=== PATIENT | male | born 1935 | race Caucasian/White ===

== ENCOUNTER 2020-06-27 22:39 | Observation (INO) | payer MEDICARE, OTHER ==
[~2020-06-27] VITALS: Ht 170.2 cm; Wt 77.2 kg
[2020-06-27 23:09] LABS: BASOPHILS % (AUTO) 1 % (0-1); EOSINOPHILS % (AUTO) 1 % (1-7); LYMPHOCYTES % (AUTO) 15 % (22-44); MEAN CORPUSCULAR HEMOGLOBIN 42.1 pg (27.5-34.5); MEAN CORPUSCULAR HGB CONC 35.5 g/dL (33.2-36.2); MEAN PLATELET VOLUME 6.4 fL (7.4-10.4); MONOCYTES % (AUTO) 8 % (2-9); NEUTROPHILS % (AUTO) 76 % (42-75); PLATELET COUNT 452 x10^3/uL (130-400); RED BLOOD COUNT 3.68 x10^6/uL (4.38-5.82)
[2020-06-27 23:20] LABS: ALBUMIN 3.7 g/dL (3.4-5.0); ANION GAP 6 mmol/L (5-15); CALCIUM 8.5 mg/dL (8.5-10.1); CHLORIDE 106 mmol/L (98-107); CREATININE 1.45 mg/dL (0.7-1.3)
[2020-06-27 23:24] LABS: TROPONIN I 0.028 ng/mL (0.000-0.045)
[2020-06-27] MEDS ORDERED: [UNRECOGNIZED DRUG - OTHER] (23:29)
[2020-06-27] MEDS ORDERED: ASPI-963 PO (23:29)
[2020-06-27] MEDS ORDERED: PRAS25CA6 PO (23:29)
[2020-06-27] MEDS ORDERED: RED600CA2 PO (23:29)
[2020-06-27] MEDS ORDERED: THYR120T PO (23:29)
[2020-06-27] MEDS ORDERED: FOLIC (23:29)
[2020-06-27] MEDS ORDERED: HYDR500C3 PO (23:29)
[2020-06-27] MEDS ORDERED: SODIUM CHLORIDE FLUSH 10ML SYR IVF ONE (23:30)
[2020-06-27 23:50] LABS: MD MORPH REVIEW ONLY
[2020-06-27 23:51] LABS: <PLATELET ESTIMATE> INCREASED; <PLT MORPHOLOGY> NORMAL PLT MORPH; POLYCHROMASIA 1+
[2020-06-28] MEDS ORDERED: SODIUM CHLORIDE FLUSH 10ML SYR IVF PRN (01:00)
[2020-06-28] MEDS ORDERED: DIPHENHYDRAMINE 25 MG CAPSULE PO PRN (02:30)
[2020-06-28] MEDS ORDERED: DIAZEPAM 5 MG TABLET PO PRN (02:30)
[2020-06-28] MEDS ORDERED: ENALAPRILAT 1.25 MG/ML, 2ML IVPush PRN (02:30)
[2020-06-28] MEDS ORDERED: ONDANSETRON 2MG/ML, 2ML IVPush PRN (02:30)
[2020-06-28] MEDS ORDERED: ACETAMINOPHEN 325 MG TABLET PO PRN (02:30)
[2020-06-28 03:13] VITALS: BP 167/77
[2020-06-28 03:39] LABS: BILIRUBIN, DIRECT 0.2 mg/dL (0.1-0.2)
[2020-06-28 04:05] LABS: BILIRUBIN,INDIRECT 0.5 mg/dL (0.0-2.0); BILIRUBIN,TOTAL 0.7 mg/dL (0.2-1.0); TOTAL PROTEIN 6.9 g/dL (6.4-8.2)
[2020-06-28 05:17] LABS: CHOLESTEROL, TOTAL 126 mg/dL (140-239); TRIGLYCERIDES 69 mg/dL (50-200); VLDL CHOLESTEROL 14 mg/dL (0-25)
[2020-06-28 05:20] LABS: CHOL/HDL RATIO 2.8; HDL CHOL % 36 % (26-37); HDL CHOLESTEROL (DIRECT) 45 mg/dL (40-60); LDL CHOLESTEROL,CALCULATED 67 mg/dL (54-169); LDL/HDL RATIO 1.5 (0.5-3.0); TROPONIN I 0.031 ng/mL (0.000-0.045)
[2020-06-28 07:17] VITALS: BP 157/81
[2020-06-28] MEDS ORDERED: HYDROXYUREA 500 MG CAPSULE PO SCH ×3 (09:00→21:00)
[2020-06-28] MEDS ORDERED: DHEA 25 MG PO SCH (09:00)
[2020-06-28] MEDS ORDERED: TEMPLATE NON-FORMULARY MED. (Red Yeast Rice** 600 MG) PO SCH (09:00)
[2020-06-28] MEDS ORDERED: CHOLEAST PO SCH (09:00)
[2020-06-28] MEDS ORDERED: [UNRECOGNIZED DRUG - OTHER] PO SCH (09:00)
[2020-06-28] MEDS ORDERED: ASPIRIN 81 MG TABLET EC PO SCH (09:00)
[2020-06-28] MEDS ORDERED: THYROID 30 MG TABLET PO SCH (09:00)
[2020-06-28] MEDS: THYROID 30 MG TABLET PO SCH (09:00)
[2020-06-28] MEDS: ASPIRIN 81 MG TABLET EC PO SCH (09:00)
[2020-06-28] MEDS: HYDROXYUREA 500 MG CAPSULE PO SCH (09:09)
[2020-06-28 09:24] LABS: MICROSCOPIC NOT IND
[2020-06-28 13:14] VITALS: BP 151/78
[2020-06-28 21:50] VITALS: BP 164/89
[2020-06-29 01:45] VITALS: BP 148/66
[2020-06-29 07:20] VITALS: BP 121/76
[2020-06-29 07:43] LABS: BASOPHILS % (AUTO) 1 % (0-1); EOSINOPHILS % (AUTO) 1 % (1-7); LYMPHOCYTES % (AUTO) 17 % (22-44); MEAN CORPUSCULAR HEMOGLOBIN 42.2 pg (27.5-34.5); MEAN CORPUSCULAR HGB CONC 34.9 g/dL (33.2-36.2); MEAN PLATELET VOLUME 6.5 fL (7.4-10.4); MONOCYTES % (AUTO) 10 % (2-9); NEUTROPHILS % (AUTO) 72 % (42-75); PLATELET COUNT 532 x10^3/uL (130-400); RED BLOOD COUNT 4.08 x10^6/uL (4.38-5.82); RED CELL DISTRIBUTION WIDTH 13.2 % (9.4-14.8)
[2020-06-29 07:50] LABS: MD NO
[2020-06-29 07:56] LABS: ANION GAP 5 mmol/L (5-15); CALCIUM 8.8 mg/dL (8.5-10.1); CHLORIDE 105 mmol/L (98-107); CREATININE 1.26 mg/dL (0.7-1.3)
[2020-06-29] MEDS: THYROID 30 MG TABLET PO SCH (08:03)
[2020-06-29] MEDS: ASPIRIN 81 MG TABLET EC PO SCH (08:03)
[2020-06-29] MEDS: HYDROXYUREA 500 MG CAPSULE PO SCH (08:13)
[2020-06-29] MEDS ORDERED: OMNIPAQUE 350 MG/ML, 100ML BOTTLE ONE (10:51)
[2020-06-29] MEDS ORDERED: DIAZEPAM 5 MG/ML, 10ML VIAL IV ONE (13:00)
[2020-06-29] MEDS ORDERED: DIAZEPAM 5 MG/ML, 2ML IV ONE ×2 (13:00→14:30)
[2020-06-29 13:42] VITALS: BP 130/83
== END 2020-06-29 17:53 | disposition home or self-care (01) ==
LOC: ED 06-28 01:27 → EDIP 06-28 01:45 → INTOOBSV 06-28 01:45 → 5SO 06-28 02:19
PROVIDERS: ADMIT Family Medicine; ATTEND Hospitalist
DX: R55 Syncope and collapse (principal); N17.0 Acute kidney failure with tubular necrosis; I65.23 Occlusion and stenosis of bilateral carotid arteries; I49.1 Atrial premature depolarization; I34.0 Nonrheumatic mitral (valve) insufficiency; D75.89 Other specified diseases of blood and blood-forming organs; J44.9 Chronic obstructive pulmonary disease, unspecified; E78.5 Hyperlipidemia, unspecified; E03.9 Hypothyroidism, unspecified; D45 Polycythemia vera; I27.20 Pulmonary hypertension, unspecified; Z87.891 Personal history of nicotine dependence; Z79.899 Other long term (current) drug therapy; Z79.82 Long term (current) use of aspirin; Z86.73 Personal history of transient ischemic attack (TIA), and cerebral infarction without residual deficits
CPT/HCPCS: 36415; 70450; 70496; 70498; 70551; 71045; 80048; 80061; 81003; 82040; 82247; 82248; 82607; 83735; 84075; 84100; 84155; 84443; 84450; 84460; 84484; 85025; 93005; 93306; 93880; 96374; 96376; 97161; 97165; 99285; G0378; J3360; Q0163; Q9967

== ENCOUNTER → 2020-09-16 | Outpatient (CLI) | payer MEDICARE, OTHER ==
[~2020-09-16] MED LIST: ASPI-963 PO; FOLIC; HYDR500C3 PO; PRAS25CA6 PO; RED600CA2 PO; REGADENOSON 0.4 MG/5 ML SYRINGE ONE; THYR120T PO; [UNRECOGNIZED DRUG - OTHER]
== END | disposition home or self-care (01) ==
LOC: CFH 07:56
PROVIDERS: ATTEND Internal Medicine Cardiovascular Disease
DX: I48.0 Paroxysmal atrial fibrillation (principal); R55 Syncope and collapse
CPT/HCPCS: 78452; 93017; A9502; J2785